=== PATIENT | female | born 1945 | race Native Hawaiian/Other Pacific Islander ===

== ENCOUNTER 2020-08-05 23:13 | Observation (INO) | payer MEDICARE, OTHER ==
--- NOTE | 2020-08-05 23:43 | ERPHSYRPT ---
- History of Present Illness Time Seen by Provider: 08/05/20 23:40 Physician History: Patient is a 75-year-old female presents to our ED for hypoglycemia. Patient states that she is diabetic. She advised that her is Covid positive. Patient has not been feeling well for some time. For the past several days 60 on the monitor oral intake has decreased. However patient continued to take her diabetic medication. Today patient felt as though her blood sugar was low. Patient checked at and it was indeed low. Patient states blood sugar was 60 on the monitor. Patient tried to eat but could not because she felt nauseous. Daughter called EMS. Upon their arrival blood sugar was 95. On arrival to our ED blood sugar was 83. Patient states she feels unwell. Patient feels weak and nauseous. Patient symptoms are constant. No chest pain or shortness of breath. No diarrhea. Symptoms are mild to moderate in intensity. No specific worsening or improving factors. Patient voices no other complaints at this time. Timing/Duration: today Severity: moderate Modifying Factors: Improves With: nothing Associated Symptoms: nausea, weakness Allergies/Adverse Reactions: No Known Drug Allergies Allergy (Unverified 08/05/20 23:28) - Review of Systems Constitutional: No Symptoms, No Fever, No Chills Eyes: No Symptoms Ears, Nose, & Throat: No Symptoms Respiratory: No Symptoms, No Cough, No Dyspnea Cardiac: No Symptoms, No Chest Pain, No Edema, No Syncope Abdominal/Gastrointestinal: No Symptoms, No Abdominal Pain, No Nausea, No Vo miting, No Diarrhea Genitourinary Symptoms: No Symptoms, No Dysuria Musculoskeletal: No Symptoms, No Back Pain, No Neck Pain Skin: No Symptoms, No Rash Neurological: No Symptoms, No Dizziness, No Focal Weakness, No Sensory Changes Psychological: No Symptoms Endocrine: No Symptoms Hematologic/Lymphatic: No Symptoms Immunological/Allergic: No Symptoms All Other Systems: Reviewed and Negative - Nursing Vital Signs Nursing Vital Signs: Initial Vital Signs Temperature 98.3 F 08/05/20 23:29 Pulse Rate 105 H 08/05/20 23:29 Blood Pressure 157/57 08/05/20 23:29 O2 Sat by Pulse Oximetry 97 08/05/20 23:29 Pain Scale Pain Intensity 0 - Physical Exam General Appearance: no apparent distress, alert Eye Exam: PERRL/EOMI, eyes nml inspection Ears, Nose, Throat Exam: normal ENT inspection, TMs normal, pharynx normal, moist mucous membranes Neck Exam: normal inspection, non-tender, supple, full range of motion Respiratory Exam: normal breath sounds, lungs clear, No respiratory distress Cardiovascular Exam: regular rate/rhythm, normal heart sounds, normal peripheral pulses Gastrointestinal/Abdomen Exam: soft, normal bowel sounds, No tenderness, No mass Back Exam: normal inspection, normal range of motion, No CVA tenderness, No v ertebral tenderness Extremity Exam: normal inspection, normal range of motion, pelvis stable Neurologic Exam: alert, oriented x 3, cooperative, normal mood/affect, nml cerebellar function, nml station & gait, sensation nml, No motor deficits Skin Exam: normal color, warm, dry, No rash Lymphatic Exam: No adenopathy SpO2 Interpretation: normal O2 Delivery: Room Air - Course Nursing assessment & vital signs reviewed: Yes Ordered Tests: Active Orders 24 hr Category Date Time Status Spinning Operator STAT Care 08/05/20 23:42 Active EKG-ER Only STAT Care 08/05/20 23:41 Active IV Insertion STAT Care 08/05/20 23:41 Active Pulse Oximetry (ED) STAT Care 08/05/20 23:42 Active UA W/RFX UR CULTURE Stat Lab 08/05/20 23:41 Ordered Lab/Rad Data: Laboratory Result Diagrams 08/05/20 00:13 08/05/20 00:13 Laboratory Results 08/05/20 08/05/20 08/05/20 Range/Units 00:13 00:13 00:13 WBC 13.1 H (4.0-10.5) K/mm3 RBC 3.59 L (4.1-5.4) M/mm3 Hgb 10.8 L (12.0-16.0) gm/dl Hct 32.0 L (35-47) % MCV 89.1 (78-100) fl MCH 30.1 (26-32) pg MCHC 33.8 (32-36) g/dl RDW 13.6 (11.5-14.0) % Plt Count 374 (150-450) K/mm3 MPV 9.3 (7.5-11.0) fl Sodium 131 L (137-145) mmol/L Potassium 3.9 (3.5-5.1) mmol/L Chloride 98 (98-107) mmol/L Carbon Dioxide 21 L (22-30) mmol/L Anion Gap 15.9 H (5-15) MEQ/L BUN 22 H (7-17) mg/dL Creatinine 0.73 (0.52-1.04) mg/dL Estimated GFR > 60.0 ML/MIN Glucose 106 (74-106) mg/dL Calcium 8.8 (8.4-10.2) mg/dL Total Bilirubin 0.50 (0.2-1.3) mg/dL AST 40 H (14-36) U/L ALT 28 (0-35) U/L Alkaline Phosphatase 98 (38-126) U/L Troponin I < 0.012 (0.000-0.034) ng/mL Serum Total Protein 6.9 (6.3-8.2) g/dL Albumin 3.9 (3.5-5.0) g/dL - Progress Progress: improved Progress Note: Patient reassessed. Patient continues to feel weak and nauseous. Covid test pending. Patient anemic at 10.8. Mild nongap acidosis of 15.9. 08/06/20 00:50 Patient Covid positive. Case discussed with Dr. Ayala who accepts admission to observation. Plan of care discussed with patient. She agrees to admission for further evaluation and treatment of her persistent nausea and generalized weakness. Patient voices no other complaints or concerns at this time. 08/06/20 04:16 08/06/20 04:16 Will see patient in: hospital (observation) Counseled pt/family regarding: lab results, diagnosis - Departure Departure Disposition: Observation Clinical Impression: Anemia, Generalized weakness, High anion gap metabolic acidosis, COVID-19 Condition: Stable Critical Care Time: No
[2020-08-06 00:26] LABS: Hemoglobin 10.8 gm/dl (12.0-16.0); Mean Cell Volume 89.1 fl (78-100); Mean Corpuscular Hemoglobin 30.1 pg (26-32); Mean Corpuscular Hgb Concent. 33.8 g/dl (32-36); Mean Platelet Volume 9.3 fl (7.5-11.0); Platelet Count 374 K/mm3 (150-450); Red Blood Count 3.59 M/mm3 (4.1-5.4); Red Cell Distribution Width 13.6 % (11.5-14.0); White Blood Count 13.1 K/mm3 (4.0-10.5)
[2020-08-06 00:33] LABS: ALBUMIN 3.9 g/dL (3.5-5.0); ALKALINE PHOSPHATASE 98 U/L (38-126); ANION GAP 15.9 MEQ/L (5-15); BLOOD UREA NITROGEN 22 mg/dL (7-17); CHLORIDE 98 mmol/L (98-107); Calcium 8.8 mg/dL (8.4-10.2); Carbon Dioxide 21 mmol/L (22-30); Creatinine 1 0.73 mg/dL (0.52-1.04); EST GLOMERULAR FILTRATION RATE > 60.0 ML/MIN; Glucose 106 mg/dL (74-106); Potassium 3.9 mmol/L (3.5-5.1); SGOT/AST 40 U/L (14-36); SGPT/ALT 28 U/L (0-35); SODIUM 131 mmol/L (137-145); Total Protein 6.9 g/dL (6.3-8.2)
[2020-08-06] MEDS ORDERED: Zofran 4 MG/2 ML VIAL ONE (03:35)
[2020-08-06] MEDS ORDERED: Sodium Chloride 0.9% 1000 ML 1,000 ML ONE (03:46)
[2020-08-06] MEDS ORDERED: ZOFRAN ODT 4 MG PO PRN (04:20)
[2020-08-06 04:21] LABS: ATYPICAL LYMPHS 1 %; Eosinophil 5 % (0.00-3.0); Lymphocytes 4 % (24-44); Monocyte 2 % (0.0-12.0); Neutrophils 88 % (36.0-66.0); Platelet Estimate NORMAL (NORMAL); Total Cells Counted 100
[2020-08-06] MEDS ORDERED: Zofran 4 MG/2 ML VIAL IV PRN (04:21)
[2020-08-06] MEDS ORDERED: TYLENOL 325 MG PO PRN (04:22)
[2020-08-06 04:42] LABS: Appearance CLEAR (CLEAR); Bacteria NONE SEEN /HPF (NEGATIVE); Bilirubin NEGATIVE (NEGATIVE); Glucose NEGATIVE (NEGATIVE); Ketones TRACE (NEGATIVE); Mucus SLIGHT /HPF (NEGATIVE); Nitrite NEGATIVE (NEGATIVE); Protein,Urine Dip 100 (Negative); RBC NEGATIVE Ery/ul (0-5); Urobilinogen 0.2 mg/dL (0-1); WBC 0-2 /HPF (0-5)
[2020-08-06 06:10] LABS: ALBUMIN 4.1 g/dL (3.5-5.0); ALKALINE PHOSPHATASE 92 U/L (38-126); ANION GAP 12.9 MEQ/L (5-15); BLOOD UREA NITROGEN 21 mg/dL (7-17); CHLORIDE 98 mmol/L (98-107); Carbon Dioxide 24 mmol/L (22-30); Creatinine 1 0.74 mg/dL (0.52-1.04); EST GLOMERULAR FILTRATION RATE > 60.0 ML/MIN; Glucose 137 mg/dL (74-106); Potassium 4.2 mmol/L (3.5-5.1); SGOT/AST 42 U/L (14-36); SGPT/ALT 31 U/L (0-35); SODIUM 131 mmol/L (137-145); Total Protein 7.7 g/dL (6.3-8.2)
[2020-08-06 06:11] LABS: Hematocrit 32.6 % (35-47); Hemoglobin 10.8 gm/dl (12.0-16.0); Mean Cell Volume 90.1 fl (78-100); Mean Corpuscular Hemoglobin 29.8 pg (26-32); Mean Corpuscular Hgb Concent. 33.1 g/dl (32-36); Mean Platelet Volume 9.5 fl (7.5-11.0); Platelet Count 385 K/mm3 (150-450); Red Blood Count 3.62 M/mm3 (4.1-5.4); Red Cell Distribution Width 13.8 % (11.5-14.0); White Blood Count 12.3 K/mm3 (4.0-10.5)
[2020-08-06 06:44] LABS: Lymphocytes 19 % (24-44); Monocyte 4 % (0.0-12.0); Neutrophils 77 % (36.0-66.0); Platelet Estimate NORMAL (NORMAL); Total Cells Counted 100
[2020-08-06] MEDS ORDERED: Decadron 4 MG INJ IV SCH (09:45)
[2020-08-06] MEDS ORDERED: Tussionex Pennkinetic Susp PO SCH (10:00)
[2020-08-06] MEDS: Sodium Chloride 0.9% 1000 ML 1,000 ML IV SCH ×2 (12:17→15:44)
[2020-08-06] MEDS ORDERED: NEOSYNEPHRINE 0.5% NASAL SPRAY/DROPS NS PRN (13:51)
[2020-08-06 14:16] VITALS: PULSE 85
[2020-08-06 16:13] VITALS: BP 136/65; O2SAT 92
--- NOTE | 2020-08-07 08:31 | SSS ---
DISCHARGE DIAGNOSES: 1) COVID RELATED GASTROENTERITIS AND VOMITING. 2) DEHYDRATION. 3) NOSEBLEED. 4) NAUSEA. 5) DIABETES MELLITUS TYPE II. 6) HYPERLIPIDEMIA. 7) HYPERTENSION. HISTORY: The patient is a 75 year old white female who lives with her and has COVID. She came in with a bad coughing spell resulting in throwing up everything she had drank. She denies any high fever, chills or sweats. She said she has been feeling bad for a week. has been in here for several days. She has not lost her taste. Appetite has been decreased for the last three days. She can eat but she throws up because she coughs mostly. MEDICATIONS: Benazepril 40 b.i.d., Lantus unknown amount q.d. ALLERGIES: NKDA. PAST MEDICAL HISTORY: Diabetes mellitus for many years. She checks her blood sugar three times a day and gets Lantus in a pump. PAST SURGICAL HISTORY: Carpal tunnel surgery a few years ago. Hysterectomy. REVIEW OF SYSTEMS: HEENT: No problems hearing or seeing. CHEST: Frequent cough but not real bad now. CVS: No chest pain or heart problems. Hypertension for 20 years. ABDOMEN: Nauseated frequently. Vomiting usually after coughing spells, not holding fluids down well. EXTREMITIES: She had carpal tunnel surgery. SOCIAL HISTORY: Besides her she has a daughter who lives close by who is healthy. She is not working at the present time having retired. PHYSICAL EXAMINATION: The patient is alert, orientated. Height 5', weight 70 kg. VITAL SIGNS: Temperature 98F, pulse 80, respirations 20, blood pressure 155/60. HEENT: Hears and sees well. Pupils equal and reactive to light. Dry mucosal membranes. NECK: Supple without adenopathy. CHEST: Few crackles. CVS: No murmurs or gallops. ABDOMEN: Normal. EXTREMITIES: Normal for age. LAB DATA AND TESTS: Her A1C is extremely good at 6.06. Glucose 136, creatinine 0.74, sodium 131, potassium 42. D-dimer is normal at 467. White count 12.3. COVID was positive. HOSPITAL COURSE: The patient did pretty well with some IV fluid and Zofran. However, approximately at noon she started having a nosebleed which took quite a while to stop. She said she does not have them but the daughter said she has them frequently. It was stopped with a manual clamp and using some Adiel-Synephrine and she has been doing well for several hours. The patient has recovered from the dehydration from the COVID virus and the cough. She will be discharged home with a nose clamp and Adiel-Synephrine. They are to call if she gets feeling worse. She is to stay in isolation for ten days from the time of the first test was positive and to call if she gets more short of breath, or has a nosebleed she cannot control. PROGNOSIS: Good.
== END 2020-08-06 17:25 | disposition home or self-care (01) ==
LOC: ED 23:13 → MED SURG 08-06 02:45
PROVIDERS: ADMIT Family Medicine; ATTEND Family Medicine
DX: U07.1 COVID-19 (principal); K52.9 Noninfective gastroenteritis and colitis, unspecified; R11.10 Vomiting, unspecified; E86.0 Dehydration; R04.0 Epistaxis; E11.9 Type 2 diabetes mellitus without complications; I10 Essential (primary) hypertension; E78.5 Hyperlipidemia, unspecified; Z79.899 Other long term (current) drug therapy
CPT/HCPCS: 36415; 80053; 81015; 82947; 83036; 84484; 85025; 85379; 93268; 94762; 99284; G0378; U0003; J2405; Q0162; A9270-GY